=== PATIENT | male | born 1995 | race Caucasian/White ===

== ENCOUNTER 2024-03-27 14:25 | Outpatient (CLI) | payer OTHER, SELFPAY ==
--- NOTE | 2024-03-27 14:37 | MR_ITS ---
WS: [id number] MRI LEFT KNEE HISTORY: BILATERAL KNEE PAIN COMPARISON: Radiograph 03/13/2024 Anterior cruciate ligament: Intact. Small amount of fluid adjacent to the ACL. Very small amount of f luid in the distal central ACL may represent a intrasubstance tear. No full-thickness tear. Posterior cruciate ligament: Intact. Medial collateral ligament: Intact. Posterior lateral corner structures: Intact. Medial menisci: Intact. Normal signal, size and shape. Lateral meniscus: Intact. Normal signal, size and shape. Extensor mechanism: Distal quadriceps tendon and patellar tendons are intact. Fluid and soft tissue: No joint effusion. No Heller's cyst. Osseous and articular structures: Patellofemoral compartment: Normal. Medial compartment: Normal. Lateral compartment: Normal. MR/MR knee LT wo con* [id number] IMPRESSION: 1. No meniscal tear. 2. No marrow edema or joint effusion. 3. Very subtle amount of increased fluid in the distal ACL. May potentially re present a small intrasubstance tear. Majority of the fibers are intact.
--- NOTE | 2024-03-27 14:37 | MR_ITS ---
WS: [id number] MRI RIGHT KNEE HISTORY: BILATERAL KNEE PAIN COMPARISON: Radiograph 03/13/2024 Anterior cruciate ligament: Intact. Posterior cruciate ligament: Intact. Medial collateral ligament: Intact. Posterior lateral corner structures: Intact. Medial menisci: Intact. Normal signal, size and shape. Lateral meniscus: Intact. Normal signal, size and shape. Extensor mechanism: Distal quadriceps tendon and patellar tendons are intact. Fluid and soft tissue: No joint effusion. No Heller's cyst. Osseous and articular structures: Patellofemoral compartment: Normal. Medial compartment: Mild narrowing of the medial compartment. Focal chondromalacia involving the sect ion measuring approximately 13 mm along the weightbearing surface of the femoral condyle. Full-thickn ess defects but no marrow edema. Lateral compartment: Normal. MR/MR knee RT wo con* [id number] IMPRESSION: 1. No ACL tear. 2. No meniscal tear. 3. 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 Full-thickness cartilage defects but no underlying marrow edema.
== END 2024-03-27 14:26 | disposition home or self-care (01) ==
PROVIDERS: PCP Nurse Practitioner Family; Visit Provider Nurse Practitioner Family
DX: M94.261 Chondromalacia, right knee (principal); M25.462 Effusion, left knee
CPT/HCPCS: 73721

== ENCOUNTER → 2024-05-01 10:18 | Outpatient (BNVA) | payer OTHER, SELFPAY | PROVIDERS: PCP Nurse Practitioner Family; Visit Provider Student in an Organized Health Care Education/Training Program | DX: M25.561 Pain in right knee (principal); M25.562 Pain in left knee; M24.19 Other articular cartilage disorders, other specified site | CPT/HCPCS: 20610; 99204; J3301 ==

== ENCOUNTER → 2024-09-09 10:17 | Outpatient (BNVA) | payer OTHER, SELFPAY | PROVIDERS: PCP Nurse Practitioner Family; Visit Provider Student in an Organized Health Care Education/Training Program | DX: M24.10 Other articular cartilage disorders, unspecified site (principal); M24.19 Other articular cartilage disorders, other specified site | CPT/HCPCS: 99214 ==